=== PATIENT | female | born 1935 | race Two or more races ===

== ENCOUNTER 2021-04-18 13:26 | Inpatient (IN) | payer MEDICAID ==
[~2021-04-18] VITALS: Ht 147.3 cm; Wt 59.9 kg
[2021-04-18] MEDS ORDERED: lasix (13:36)
[2021-04-18] MEDS ORDERED: metoprolol (13:36)
[2021-04-18] MEDS ORDERED: verapamil (13:36)
[2021-04-18] MEDS ORDERED: metformin (13:36)
[2021-04-18] MEDS ORDERED: xarelto (13:36)
[2021-04-18] MEDS ORDERED: gabapentin (13:36)
[2021-04-18] MEDS ORDERED: ONDANSETRON HCL 4MG/2ML INJ IV ONE (14:00)
[2021-04-18] MEDS ORDERED: DILTIAZEM HCL 5MG/ML 5ML VIAL IV ONE ×2 (14:00→14:30)
[2021-04-18 14:05] LABS: BASOPHILS % 0.3 % (0.0-2.0); HEMOGLOBIN. 10.1 g/dL (12.0-16.0); LYMPHOCYTES % 12.4 % (20.0-50.0); MEAN CORPUSCULAR HEMOGLOBIN 27.4 pg (28.0-32.0); MONOCYTES % 5.3 % (2.0-8.0); PLATELET 252 x1000/uL (130-400); RED CELL DISTRIBUTION WIDTH 22.5 % (11.6-14.6)
[2021-04-18 14:10] LABS: CHLORIDE 99 mEq/L (98-107)
[2021-04-18 14:15] LABS: INR 1.8; PROTHROMBIN TIME 18.3 sec (9.6-11.0)
[2021-04-18 14:23] LABS: T4 FREE 1.28 ng/dL (0.76-1.46)
[2021-04-18] MEDS ORDERED: FAMOTIDINE 20MG/2ML VIAL IV ONE (14:30)
[2021-04-18] MEDS ORDERED: FUROSEMIDE 20MG/2ML VIAL IVP ONE (15:00)
[2021-04-18 15:36] LABS: PLATELET ESTIMATE NORMAL
[2021-04-18] MEDS ORDERED: METOCLOPRAMIDE HCL 10MG/2ML VIAL IV ONE (16:00)
[2021-04-18] MEDS ORDERED: DIPHENHYDRAMINE 50MG/ML VIAL IV PRN (16:00)
[2021-04-18] MEDS ORDERED: ACETAMINOPHEN 650MG SUPP PR PRN ×2 (16:00)
[2021-04-18] MEDS ORDERED: GUAIFENESIN 200MG/10ML SUGAR FREE UDC PO PRN (16:00)
[2021-04-18] MEDS ORDERED: ACETAMINOPHEN 325MG TABLET PO PRN ×2 (16:00)
[2021-04-18] MEDS ORDERED: ENOXAPARIN 40MG/0.4ML SYR SUBCUT SCH (16:00)
[2021-04-18] MEDS ORDERED: IPRATROPIUM/ALBUTEROL 0.5-3(2.5)MG/3ML NEB HHN PRN (16:00)
[2021-04-18] MEDS ORDERED: DOCUSATE SODIUM 100MG CAPSULE PO PRN (16:00)
[2021-04-18] MEDS ORDERED: CLONIDINE 0.1MG TABLET PO PRN (16:00)
[2021-04-18] MEDS ORDERED: MAGNESIUM/ALUMINUM HYDROXIDE/SIMETHICONE 30ML UDC PO PRN (16:00)
[2021-04-18] MEDS ORDERED: LEVOTHYROXINE SODIUM 100 MCG/ VIAL IV NR (17:30)
[2021-04-18 18:17] LABS: CLARITY URINE CLEAR (CLEAR); COLOR URINE YELLOW (YELLOW); KETONES URINE TRACE (NEGATIVE); LEUKOCYTE ESTERASE URINE NEGATIVE (NEGATIVE); NITRITE URINE NEGATIVE (NEGATIVE); OCCULT BLOOD URINE NEGATIVE (NEGATIVE); PROTEIN URINE TRACE (NEGATIVE); SPECIFIC GRAVITY URINE 1.014 (1.005-1.030)
[2021-04-18] MEDS: ONDANSETRON HCL 4MG/2ML INJ IV PRN (19:21)
[2021-04-18] MEDS ORDERED: DEXTROSE 50% WATER 50ML SYRINGE IV PRN ×2 (19:45)
[2021-04-18] MEDS ORDERED: BISACODYL 10MG SUPP PR NR (19:45)
[2021-04-18] MEDS: INSULIN LISPRO 100 UNITS/ML SUBCUT SCH (21:00)
[2021-04-18] MEDS: BLOOD SUGAR DIAGNOSTIC STRIP TEST SCH (21:00)
[2021-04-18] MEDS: DILTIAZEM HCL 60MG TABLET PO SCH (22:23)
[2021-04-18 22:40] VITALS: BP 97/74
[2021-04-18 22:50] VITALS: BP 127/92
[2021-04-19] VITALS (12 sets, daily range): BP systolic 97–128; BP diastolic 32–90
[2021-04-19] MEDS ORDERED: DILTIAZEM HCL 5MG/ML 5ML VIAL IV SCH (05:00)
[2021-04-19] MEDS: ONDANSETRON HCL 4MG/2ML INJ IV PRN ×2 (05:28→11:31)
[2021-04-19] MEDS: DILTIAZEM HCL 60MG TABLET PO SCH ×3 (05:43→21:00)
[2021-04-19 06:26] LABS: BASOPHILS % 0.5 % (0.0-2.0); HEMATOCRIT. 29.7 % (36.0-48.0); MEAN CORPUSCULAR HEMOGLOBIN 27.7 pg (28.0-32.0); MEAN CORPUSCULAR VOLUME 82.4 fL (81.0-99.0); MEAN PLATELET VOLUME 8.1 fl (7.4-10.4); MONOCYTES % 9.1 % (2.0-8.0); NEUTROPHILS % 71.4 % (40.0-76.0); PLATELET 230 x1000/uL (130-400); RED BLOOD CELL COUNT 3.61 mill/uL (4.2-5.4); RED CELL DISTRIBUTION WIDTH 22.5 % (11.6-14.6)
[2021-04-19] MEDS: LEVOTHYROXINE SODIUM 88MCG TABLET PO SCH (07:30)
[2021-04-19] MEDS: BLOOD SUGAR DIAGNOSTIC STRIP TEST SCH ×4 (07:48→20:38)
[2021-04-19] MEDS: INSULIN LISPRO 100 UNITS/ML SUBCUT SCH ×4 (08:00→20:38)
[2021-04-19 08:01] LABS: CHLORIDE 100 mEq/L (98-107)
[2021-04-19 08:13] LABS: LDL CHOLESTEROL 70 mg/dL (5-100)
[2021-04-19 08:14] LABS: CREATINE KINASE 56 IU/L (26-192)
[2021-04-19 08:15] LABS: HDL CHOLESTEROL 31 mg/dL (40-59)
[2021-04-19] MEDS ORDERED: DILTIAZEM HCL 5MG/ML 5ML VIAL IV NR (09:00)
[2021-04-19] MEDS: FUROSEMIDE 40MG/4ML VIAL IVP SCH (09:00)
[2021-04-19] MEDS: DILTIAZEM HCL 125 MG in DEXT 5% WATER 100 ML IV PRN (10:06)
[2021-04-19] MEDS: ENOXAPARIN 60MG/0.6ML SYR SUBCUT SCH (11:31)
[2021-04-19] MEDS: METOCLOPRAMIDE HCL 10MG/2ML VIAL IV PRN (15:46)
[2021-04-19 17:01] LABS: VITAMIN B12 SERUM 886 pg/mL (211-911)
[2021-04-19 17:26] LABS: FOLIC ACID (FOLATE) SERUM > 20.00 ng/mL (>5.38)
[2021-04-19] MEDS ORDERED: DIATR MEGLU/DIATRIZOATE SOLN 30ML PO NR (19:45)
[2021-04-20] VITALS (12 sets, daily range): BP systolic 98–122; BP diastolic 49–88
[2021-04-20] MEDS: DILTIAZEM HCL 60MG TABLET PO SCH ×3 (05:11→22:00)
[2021-04-20] MEDS: DILTIAZEM HCL 125 MG in DEXT 5% WATER 100 ML IV PRN (05:13)
[2021-04-20 06:27] LABS: BASOPHILS % 0.4 % (0.0-2.0); EOSINOPHILS % 0.7 % (0.0-5.0); HEMATOCRIT. 30.6 % (36.0-48.0); HEMOGLOBIN. 10.1 g/dL (12.0-16.0); LYMPHOCYTES % 18.2 % (20.0-50.0); MEAN CORPUSCULAR HEMOGLOBIN 27.2 pg (28.0-32.0); MEAN CORPUSCULAR VOLUME 82.2 fL (81.0-99.0); MONOCYTES % 11.3 % (2.0-8.0); NEUTROPHILS % 69.4 % (40.0-76.0); PLATELET 249 x1000/uL (130-400); RED BLOOD CELL COUNT 3.73 mill/uL (4.2-5.4); RED CELL DISTRIBUTION WIDTH 22.5 % (11.6-14.6)
[2021-04-20] MEDS: LEVOTHYROXINE SODIUM 88MCG TABLET PO SCH (08:24)
[2021-04-20] MEDS: FUROSEMIDE 40MG/4ML VIAL IVP SCH (08:24)
[2021-04-20] MEDS: BLOOD SUGAR DIAGNOSTIC STRIP TEST SCH ×4 (08:25→20:32)
[2021-04-20] MEDS: INSULIN LISPRO 100 UNITS/ML SUBCUT SCH ×4 (08:25→20:36)
[2021-04-20] MEDS: ENOXAPARIN 60MG/0.6ML SYR SUBCUT SCH (10:03)
[2021-04-20] MEDS: DIATR MEGLU/DIATRIZOATE SOLN 30ML PO SCH ×2 (10:03→11:12)
[2021-04-20] MEDS: METOCLOPRAMIDE HCL 10MG/2ML VIAL IV PRN (11:13)
[2021-04-20 14:49] LABS: FERRITIN 48 ng/mL (10-291)
[2021-04-20] MEDS ORDERED: DILTIAZEM HCL 5MG/ML 5ML VIAL IV PRN (16:00)
[2021-04-20] MEDS ORDERED: KCL 20MEQ/100ML PREMIX 100 ML IV NR (17:00)
[2021-04-21] VITALS (12 sets, daily range): BP systolic 99–130; BP diastolic 52–82
[2021-04-21 05:41] LABS: INR 1.3; PROTHROMBIN TIME 13.3 sec (9.6-11.0)
[2021-04-21] MEDS: DILTIAZEM HCL 60MG TABLET PO SCH ×3 (06:10→21:29)
[2021-04-21] MEDS: LEVOTHYROXINE SODIUM 88MCG TABLET PO SCH (06:13)
[2021-04-21 06:21] LABS: BASOPHILS % 0.4 % (0.0-2.0); EOSINOPHILS % 0.7 % (0.0-5.0); HEMATOCRIT. 29.7 % (36.0-48.0); HEMOGLOBIN. 9.8 g/dL (12.0-16.0); LYMPHOCYTES % 25.7 % (20.0-50.0); MEAN CORPUSCULAR HEMOGLOBIN 27.2 pg (28.0-32.0); MEAN CORPUSCULAR VOLUME 82.7 fL (81.0-99.0); MEAN PLATELET VOLUME 7.9 fl (7.4-10.4); NEUTROPHILS % 61.2 % (40.0-76.0); PLATELET 236 x1000/uL (130-400); RED BLOOD CELL COUNT 3.59 mill/uL (4.2-5.4); RED CELL DISTRIBUTION WIDTH 22.1 % (11.6-14.6)
[2021-04-21] MEDS: BLOOD SUGAR DIAGNOSTIC STRIP TEST SCH ×4 (07:28→20:26)
[2021-04-21] MEDS ORDERED: POTASSIUM CHLORIDE 20MEQ TABLET SR PO NR (08:00)
[2021-04-21] MEDS: INSULIN LISPRO 100 UNITS/ML SUBCUT SCH ×4 (08:17→21:00)
[2021-04-21] MEDS: FUROSEMIDE 40MG/4ML VIAL IVP SCH (08:17)
[2021-04-21] MEDS ORDERED: MAGNESIUM 2 G PREMIX 50 ML IV NR (09:00)
[2021-04-21] MEDS: ENOXAPARIN 60MG/0.6ML SYR SUBCUT SCH (11:22)
[2021-04-21] MEDS ORDERED: DIGOXIN 500MCG/2ML AMP IV NR (14:00)
[2021-04-21] MEDS: MAGNESIUM OXIDE 400MG TABLET PO SCH (14:21)
[2021-04-21] MEDS ORDERED: DIGOXIN 500MCG/2ML AMP IV PRN (16:30)
[2021-04-21] MEDS: DIGOXIN 500MCG/2ML AMP IV SCH (18:02)
[2021-04-21] MEDS: FERROUS SULFATE 325MG TABLET PO SCH (18:02)
[2021-04-22] VITALS (8 sets, daily range): BP systolic 108–126; BP diastolic 52–98
[2021-04-22] MEDS: LEVOTHYROXINE SODIUM 88MCG TABLET PO SCH (06:21)
[2021-04-22] MEDS: DILTIAZEM HCL 60MG TABLET PO SCH ×3 (06:22→18:43)
[2021-04-22 06:25] LABS: BASOPHILS % 0.4 % (0.0-2.0); EOSINOPHILS % 1.2 % (0.0-5.0); HEMATOCRIT. 32.8 % (36.0-48.0); HEMOGLOBIN. 10.9 g/dL (12.0-16.0); LYMPHOCYTES % 28.6 % (20.0-50.0); MEAN CORPUSCULAR HEMOGLOBIN 27.1 pg (28.0-32.0); MEAN CORPUSCULAR VOLUME 81.4 fL (81.0-99.0); MEAN PLATELET VOLUME 7.8 fl (7.4-10.4); MONOCYTES % 12.7 % (2.0-8.0); NEUTROPHILS % 57.1 % (40.0-76.0); PLATELET 259 x1000/uL (130-400); RED BLOOD CELL COUNT 4.03 mill/uL (4.2-5.4)
[2021-04-22] MEDS: BLOOD SUGAR DIAGNOSTIC STRIP TEST SCH ×4 (07:30→21:00)
[2021-04-22] MEDS: FUROSEMIDE 40MG/4ML VIAL IVP SCH (08:52)
[2021-04-22] MEDS: MAGNESIUM OXIDE 400MG TABLET PO SCH (08:52)
[2021-04-22] MEDS: FERROUS SULFATE 325MG TABLET PO SCH (08:52)
[2021-04-22] MEDS: INSULIN LISPRO 100 UNITS/ML SUBCUT SCH ×4 (08:53→22:09)
[2021-04-22] MEDS ORDERED: POTASSIUM CHLORIDE 20MEQ TABLET SR PO NR (09:00)
[2021-04-22] MEDS: ENOXAPARIN 60MG/0.6ML SYR SUBCUT SCH (12:04)
[2021-04-22 13:10] LABS: ATYPICAL P-ANCA <1:20 titer (Neg:<1:20); CYTOPLASMIC C-ANCA <1:20 titer (Neg:<1:20); PERINUCLEAR P-ANCA <1:20 titer (Neg:<1:20)
[2021-04-22] MEDS: METOPROLOL TARTRATE 5MG/5ML VIAL IV SCH ×2 (15:47→20:55)
[2021-04-22] MEDS: DIGOXIN 500MCG/2ML AMP IV SCH (18:43)
[2021-04-22] MEDS: PANTOPRAZOLE SODIUM 40 MG/VIAL IV SCH (18:43)
[2021-04-23] VITALS: BP 111/61
[2021-04-23] MEDS: DILTIAZEM HCL 60MG TABLET PO SCH ×2 (00:38→05:57)
[2021-04-23] MEDS: METOPROLOL TARTRATE 5MG/5ML VIAL IV SCH ×4 (02:12→21:10)
[2021-04-23 04:00] VITALS: BP 107/73
[2021-04-23] MEDS: PANTOPRAZOLE SODIUM 40 MG/VIAL IV SCH ×2 (05:55→17:51)
[2021-04-23] MEDS: LEVOTHYROXINE SODIUM 88MCG TABLET PO SCH (06:03)
[2021-04-23 06:51] LABS: CHLORIDE 95 mEq/L (98-107)
[2021-04-23 06:55] LABS: BASOPHILS % 0.3 % (0.0-2.0); EOSINOPHILS % 0.4 % (0.0-5.0); HEMATOCRIT. 36.9 % (36.0-48.0); HEMOGLOBIN. 12.2 g/dL (12.0-16.0); LYMPHOCYTES % 22.1 % (20.0-50.0); MEAN CORPUSCULAR HEMOGLOBIN 27.2 pg (28.0-32.0); MEAN PLATELET VOLUME 7.7 fl (7.4-10.4); MONOCYTES % 11.3 % (2.0-8.0); NEUTROPHILS % 65.9 % (40.0-76.0); PLATELET 283 x1000/uL (130-400); RED CELL DISTRIBUTION WIDTH 21.2 % (11.6-14.6)
[2021-04-23 07:10] LABS: INR 1.1; PROTHROMBIN TIME 12.1 sec (9.6-11.0)
[2021-04-23 08:00] VITALS: BP 95/69
[2021-04-23] MEDS: INSULIN LISPRO 100 UNITS/ML SUBCUT SCH ×4 (08:00→20:13)
[2021-04-23] MEDS: BLOOD SUGAR DIAGNOSTIC STRIP TEST SCH ×4 (08:01→20:14)
[2021-04-23] MEDS: FUROSEMIDE 40MG/4ML VIAL IVP SCH (08:23)
[2021-04-23] MEDS: MAGNESIUM OXIDE 400MG TABLET PO SCH (08:24)
[2021-04-23] MEDS: FERROUS SULFATE 325MG TABLET PO SCH (08:24)
[2021-04-23] MEDS ORDERED: LIDOCAINE HCL 1% 10 MG/ML 10ML VIAL ONE (09:36)
[2021-04-23] MEDS ORDERED: DEXAMETHASONE 4MG/ML 1ML VIAL ONE (09:36)
[2021-04-23] MEDS ORDERED: PROPOFOL 200MG/20ML VIAL IV ONE (09:36)
[2021-04-23] MEDS ORDERED: ONDANSETRON HCL 4MG/2ML INJ ONE (09:36)
[2021-04-23] MEDS ORDERED: SIMETHICONE 40 MG/0.6 ML 15ML ONE (09:43)
[2021-04-23] MEDS: ENOXAPARIN 60MG/0.6ML SYR SUBCUT SCH (11:00)
[2021-04-23 12:00] VITALS: BP 105/72
[2021-04-23] MEDS: SUCRALFATE 1G TABLET PO SCH ×3 (12:54→21:08)
[2021-04-23] MEDS: DILTIAZEM HCL 30MG TABLET PO SCH ×2 (12:54→17:52)
[2021-04-23 13:07] LABS: ANTI-MYELOPEROXIDASE AB < 9.0 U/mL (0.0-9.0); ANTI-PROTEINASE 3 ABS < 3.5 U/mL (0.0-3.5)
[2021-04-23 16:00] VITALS: BP 90/65
[2021-04-23] MEDS ORDERED: DIGOXIN 125MCG TABLET PO SCH (18:00)
[2021-04-23 20:00] VITALS: BP 87/54
[2021-04-24] VITALS: BP 114/63
[2021-04-24] MEDS: DILTIAZEM HCL 30MG TABLET PO SCH ×2 (01:15→05:10)
[2021-04-24 04:00] VITALS: BP 122/80
[2021-04-24] MEDS: PANTOPRAZOLE SODIUM 40 MG/VIAL IV SCH (05:06)
[2021-04-24] MEDS: METOPROLOL TARTRATE 5MG/5ML VIAL IV SCH (05:11)
[2021-04-24] MEDS: INSULIN LISPRO 100 UNITS/ML SUBCUT SCH (06:26)
[2021-04-24] MEDS: BLOOD SUGAR DIAGNOSTIC STRIP TEST SCH ×2 (06:27→12:19)
[2021-04-24 07:19] LABS: BASOPHILS % 0.2 % (0.0-2.0); HEMATOCRIT. 33.8 % (36.0-48.0); HEMOGLOBIN. 11.4 g/dL (12.0-16.0); LYMPHOCYTES % 14.1 % (20.0-50.0); MEAN CORPUSCULAR HEMOGLOBIN 27.4 pg (28.0-32.0); MEAN CORPUSCULAR VOLUME 81.6 fL (81.0-99.0); MEAN PLATELET VOLUME 7.6 fl (7.4-10.4); MONOCYTES % 5.4 % (2.0-8.0); NEUTROPHILS % 80.3 % (40.0-76.0); PLATELET 286 x1000/uL (130-400); RED BLOOD CELL COUNT 4.15 mill/uL (4.2-5.4); RED CELL DISTRIBUTION WIDTH 21.2 % (11.6-14.6)
[2021-04-24] MEDS: LEVOTHYROXINE SODIUM 88MCG TABLET PO SCH (07:48)
[2021-04-24] MEDS: SUCRALFATE 1G TABLET PO SCH ×2 (07:48→12:25)
[2021-04-24 08:00] VITALS: BP 121/59
[2021-04-24] MEDS: FUROSEMIDE 40MG/4ML VIAL IVP SCH (08:40)
[2021-04-24] MEDS: FERROUS SULFATE 325MG TABLET PO SCH (08:40)
[2021-04-24] MEDS: MAGNESIUM OXIDE 400MG TABLET PO SCH (08:40)
[2021-04-24] MEDS: ENOXAPARIN 60MG/0.6ML SYR SUBCUT SCH (11:06)
[2021-04-24 12:00] VITALS: BP 112/59
[2021-04-24] MEDS ORDERED: METOPROLOL TARTRATE 25MG TABLET PO SCH (12:00)
[2021-04-24] MEDS ORDERED: SUCR1TAB30 PO (12:03)
[2021-04-24] MEDS ORDERED: FERR-63 PO (12:03)
[2021-04-24] MEDS ORDERED: INSU100I28 SQ (12:03)
[2021-04-24] MEDS ORDERED: MAGN400T8 MT (12:03)
[2021-04-24] MEDS ORDERED: METF-414 MT (12:03)
[2021-04-24] MEDS ORDERED: FURO40TA5 MT (12:03)
[2021-04-24] MEDS ORDERED: RIVA20TA MT (12:03)
[2021-04-24] MEDS ORDERED: LEVO88TA7 PO (12:03)
[2021-04-24] MEDS ORDERED: CARLA MT (12:03)
[2021-04-24] MEDS ORDERED: METO25TA6 PO (12:03)
[2021-04-24] MEDS ORDERED: PANT40TA51 MT (12:03)
[2021-04-24] MEDS ORDERED: DIGO-26 PO (12:03)
[2021-04-24] MEDS ORDERED: INSULIN LISPRO 100 UNITS/ML SUBCUT SCH (13:00)
[2021-04-24] MEDS ORDERED: INSULIN GLARGINE UD 100 UNITS/ML SYR SUBCUT SCH (13:30)
[2021-04-24] MEDS ORDERED: DILTIAZEM HCL 60MG TABLET PO SCH (14:00)
[2021-04-27 19:06] LABS: OVA & PARASITE EXAM Final report (.)
== END 2021-04-24 14:57 | disposition home or self-care (01) | DRG 201 ==
LOC: ER 13:46 → 5EST 14:38 → EDBEDREQSVC 15:43 → EDBEDREQ 15:43 → EDBEDREQTM 15:43 → ENRESERV 19:51
PROVIDERS: ADMIT Internal Medicine; ATTEND Internal Medicine
PROC: 0DB68ZX Excision of Stomach, Via Natural or Artificial Opening Endoscopic, Diagnostic (ICD-10-PCS; principal; 2021-04-24)
DX: I48.91 Unspecified atrial fibrillation (principal); N17.0 Acute kidney failure with tubular necrosis; J69.0 Pneumonitis due to inhalation of food and vomit; E43 Unspecified severe protein-calorie malnutrition; I31.3 Pericardial effusion (noninflammatory); K50.012 Crohn's disease of small intestine with intestinal obstruction; E11.22 Type 2 diabetes mellitus with diabetic chronic kidney disease; I50.9 Heart failure, unspecified; I13.0 Hypertensive heart and chronic kidney disease with heart failure and stage 1 through stage 4 chronic kidney disease, or unspecified chronic kidney disease; C90.00 Multiple myeloma not having achieved remission; E87.1 Hypo-osmolality and hyponatremia; Z20.822 Contact with and (suspected) exposure to COVID-19; K25.9 Gastric ulcer, unspecified as acute or chronic, without hemorrhage or perforation; E86.9 Volume depletion, unspecified; D50.9 Iron deficiency anemia, unspecified; R74.01 Elevation of levels of liver transaminase levels; K52.9 Noninfective gastroenteritis and colitis, unspecified; E03.9 Hypothyroidism, unspecified; I34.0 Nonrheumatic mitral (valve) insufficiency; I25.10 Atherosclerotic heart disease of native coronary artery without angina pectoris; K44.9 Diaphragmatic hernia without obstruction or gangrene; N18.9 Chronic kidney disease, unspecified; N28.1 Cyst of kidney, acquired; N81.10 Cystocele, unspecified; K21.9 Gastro-esophageal reflux disease without esophagitis; E87.6 Hypokalemia; E83.42 Hypomagnesemia; Z79.01 Long term (current) use of anticoagulants; Z82.49 Family history of ischemic heart disease and other diseases of the circulatory system; Z95.0 Presence of cardiac pacemaker
CPT/HCPCS: 36415; 71045; 74018; 74176; 76700; 78580; 80048; 80053; 80061; 80076; 81003; 82248; 82378; 82550; 82607; 82728; 82746; 82962; 83036; 83520; 83540; 83550; 83735; 83880; 84145; 84439; 84443; 84481; 84484; 85025; 85044; 85379; 86256; 86301; 86304; 87045; 87177; 87209; 87426; 87449; 87493; 88305; 89055; 93005; 93306; 99291; C9113; J1100; J1160; J1650; J1815; J1940; J2405; J2704; J2765; J3475; J3480; J3490; J7060; Q9963

== ENCOUNTER 2021-04-29 10:54 | Emergency (ER) | payer MEDICAID ==
[~2021-04-29] VITALS: Ht 154.9 cm; Wt 61.0 kg
[~2021-04-29 10:54] MED LIST: CARLA MT; DIGO-26 PO; FERR-63 PO; FURO40TA5 MT; INSU100I28 SQ; LEVO88TA7 PO; MAGN400T8 MT; METF-414 MT; METO25TA6 PO; PANT40TA51 MT; RIVA20TA MT; SUCR1TAB30 PO; gabapentin
[2021-04-29] MEDS ORDERED: ONDANSETRON HCL 4MG/2ML INJ IV STA (12:12)
[2021-04-29] MEDS ORDERED: FAMOTIDINE 20MG/2ML VIAL IV STA (12:12)
[2021-04-29] MEDS ORDERED: KETOROLAC 30MG/ML VIAL IV STA (12:12)
[2021-04-29 12:15] LABS: CHLORIDE 91 mEq/L (98-107)
[2021-04-29] MEDS ORDERED: SODIUM CHLORIDE 0.9% 1,000 ML IV ONE (12:15)
[2021-04-29 12:21] LABS: ETHANOL BLOOD < 10 mg/dL
[2021-04-29 12:22] LABS: BASOPHILS % 1.4 % (0.0-2.0); EOSINOPHILS % 0.5 % (0.0-5.0); HEMATOCRIT. 44.5 % (36.0-48.0); HEMOGLOBIN. 14.2 g/dL (12.0-16.0); LYMPHOCYTES % 24.8 % (20.0-50.0); MEAN CORPUSCULAR HEMOGLOBIN 26.7 pg (28.0-32.0); MEAN CORPUSCULAR VOLUME 83.4 fL (81.0-99.0); MEAN PLATELET VOLUME 7.6 fl (7.4-10.4); MONOCYTES % 5.5 % (2.0-8.0); NEUTROPHILS % 67.8 % (40.0-76.0); PLATELET 305 x1000/uL (130-400); RED BLOOD CELL COUNT 5.33 mill/uL (4.2-5.4); RED CELL DISTRIBUTION WIDTH 21.6 % (11.6-14.6)
[2021-04-29 14:04] LABS: CLARITY URINE CLEAR (CLEAR); COLOR URINE YELLOW (YELLOW); KETONES URINE NEGATIVE (NEGATIVE); LEUKOCYTE ESTERASE URINE NEGATIVE (NEGATIVE); NITRITE URINE NEGATIVE (NEGATIVE); OCCULT BLOOD URINE NEGATIVE (NEGATIVE); PH URINE 6.5 (4.5-8.0); PROTEIN URINE NEGATIVE (NEGATIVE); SPECIFIC GRAVITY URINE 1.011 (1.005-1.030); UROBILINOGEN URINE 0.2 E.U./dL (0.2-1.0)
[2021-04-29 14:16] LABS: *AMPHETAMINES SCREEN URINE NEGATIVE (NEGATIVE); *BARBITURATES SCREEN URINE NEGATIVE (NEGATIVE)
[2021-04-29 14:17] LABS: *BENZODIAZEPINES SCREEN URINE NEGATIVE (NEGATIVE); *COCAINE SCREEN URINE NEGATIVE (NEGATIVE); CANNABINOID URINE SCREEN NEGATIVE (NEGATIVE); METHADONE URINE SCREEN NEGATIVE (NEGATIVE); OPIATES URINE SCREEN NEGATIVE (NEGATIVE); PHENCYCLIDINE URINE SCREEN NEGATIVE (NEGATIVE)
[2021-04-29] MEDS ORDERED: FAMO-135 MT (15:39)
[2021-04-29] MEDS ORDERED: MAG-55 MT (15:39)
[2021-04-29] MEDS ORDERED: ONDA4TAB5 MT (15:39)
[2021-04-29 15:45] VITALS: BP 128/78
== END 2021-04-29 15:58 | disposition home or self-care (01) ==
LOC: ER 10:54
DX: K29.00 Acute gastritis without bleeding (principal); E11.43 Type 2 diabetes mellitus with diabetic autonomic (poly)neuropathy; K31.84 Gastroparesis; I11.9 Hypertensive heart disease without heart failure; I48.91 Unspecified atrial fibrillation; Z79.01 Long term (current) use of anticoagulants; I25.10 Atherosclerotic heart disease of native coronary artery without angina pectoris; Z95.0 Presence of cardiac pacemaker; Z79.84 Long term (current) use of oral hypoglycemic drugs
CPT/HCPCS: 36415; 74176; 80053; 80305; 80320; 81003; 83690; 85025; 93005; 96361; 96374; 96375; 99285; J1885; J2405; J3490; J7030; G0480

== ENCOUNTER 2021-05-29 16:40 | Inpatient (IN) | payer MEDICAID ==
[~2021-05-29] VITALS: Ht 154.9 cm; Wt 54.2 kg
[~2021-05-29 16:40] MED LIST changes: +FAMO-135 MT; +MAG-55 MT; +ONDA4TAB5 MT
[2021-05-29] MEDS ORDERED: SODIUM CHLORIDE 0.9% 1,000 ML IV ONE (18:15)
[2021-05-29 18:43] LABS: BASOPHILS % 0.9 % (0.0-2.0); EOSINOPHILS % 0.5 % (0.0-5.0); HEMATOCRIT. 37.2 % (36.0-48.0); HEMOGLOBIN. 12.6 g/dL (12.0-16.0); MEAN CORPUSCULAR HEMOGLOBIN 29.3 pg (28.0-32.0); MEAN CORPUSCULAR VOLUME 86.2 fL (81.0-99.0); MEAN PLATELET VOLUME 7.9 fl (7.4-10.4); MONOCYTES % 7.7 % (2.0-8.0); NEUTROPHILS % 63.9 % (40.0-76.0); PLATELET 253 x1000/uL (130-400); RED BLOOD CELL COUNT 4.32 mill/uL (4.2-5.4); RED CELL DISTRIBUTION WIDTH 21.1 % (11.6-14.6)
[2021-05-29 18:44] LABS: CHLORIDE 104 mEq/L (98-107)
[2021-05-29 19:03] LABS: CLARITY URINE CLOUDY (CLEAR); COLOR URINE YELLOW (YELLOW); KETONES URINE NEGATIVE (NEGATIVE); LEUKOCYTE ESTERASE URINE 3+ (NEGATIVE); NITRITE URINE NEGATIVE (NEGATIVE); OCCULT BLOOD URINE 1+ (NEGATIVE); PROTEIN URINE TRACE (NEGATIVE); UROBILINOGEN URINE 0.2 E.U./dL (0.2-1.0)
[2021-05-30 01:30] VITALS: BP 108/66
[2021-05-30] MEDS ORDERED: *PATIENT'S OWN MEDICATION STORAGE XX SCH (03:00)
[2021-05-30 04:00] VITALS: BP 96/59
[2021-05-30 06:43] VITALS: BP 102/62
[2021-05-30] MEDS ORDERED: DEXTROSE 50% WATER 50ML SYRINGE IV PRN (07:30)
[2021-05-30] MEDS: SODIUM CHLORIDE 0.9% 1,000 ML IV SCH ×2 (08:12→20:21)
[2021-05-30] MEDS ORDERED: CEFTRIAXONE 1 G PREMIX 50 ML IV SCH (09:15)
[2021-05-30] MEDS ORDERED: DILTIAZEM HCL 180MG CAPSULE CD 24HR PO NR (10:45)
[2021-05-30] MEDS: PANTOPRAZOLE 40MG DR TABLET PO SCH (11:35)
[2021-05-30] MEDS: SUCRALFATE 1G TABLET PO SCH ×3 (11:35→20:17)
[2021-05-30] MEDS: CEFTRIAXONE 1,000 MG in DEXTROSE 5% WATER 50 ML IV SCH (11:35)
[2021-05-30] MEDS: DILTIAZEM HCL 180MG CAPSULE CD 24HR PO SCH (11:36)
[2021-05-30] MEDS: BLOOD SUGAR DIAGNOSTIC STRIP TEST SCH ×3 (11:36→20:19)
[2021-05-30 12:00] VITALS: BP 125/76
[2021-05-30 12:19] LABS: BASOPHILS % 0.6 % (0.0-2.0); HEMATOCRIT. 33.6 % (36.0-48.0); HEMOGLOBIN. 11.1 g/dL (12.0-16.0); LYMPHOCYTES % 24.3 % (20.0-50.0); MEAN CORPUSCULAR HEMOGLOBIN 28.9 pg (28.0-32.0); MEAN CORPUSCULAR VOLUME 87.2 fL (81.0-99.0); MEAN PLATELET VOLUME 7.4 fl (7.4-10.4); MONOCYTES % 8.1 % (2.0-8.0); PLATELET 237 x1000/uL (130-400); RED BLOOD CELL COUNT 3.86 mill/uL (4.2-5.4); RED CELL DISTRIBUTION WIDTH 21.5 % (11.6-14.6)
[2021-05-30] MEDS: INSULIN LISPRO 100 UNITS/ML SUBCUT SCH ×3 (12:35→20:18)
[2021-05-30] MEDS ORDERED: INSULIN GLARGINE 100 UNITS/ML SUBCUT NR (13:00)
[2021-05-30] MEDS ORDERED: MAGNESIUM 4 G PREMIX 100 ML IV SCH ×2 (13:00→15:30)
[2021-05-30 16:00] VITALS: BP 130/80
[2021-05-30] MEDS ORDERED: METFORMIN HCL 500MG TABLET PO SCH (17:00)
[2021-05-30] MEDS ORDERED: FAMOTIDINE(NEO) 1MG/ML SUSP PO SCH (17:00)
[2021-05-30] MEDS: KCL 20MEQ/100ML PREMIX 100 ML IV SCH ×2 (17:24→20:17)
[2021-05-30] MEDS: DIGOXIN 125MCG TABLET PO SCH (17:55)
[2021-05-30 20:00] VITALS: BP 98/57
[2021-05-30] MEDS: METOPROLOL TARTRATE 25MG TABLET PO SCH (20:18)
[2021-05-31] VITALS: BP 102/57
[2021-05-31 04:00] VITALS: BP 109/67
[2021-05-31] MEDS: BLOOD SUGAR DIAGNOSTIC STRIP TEST SCH ×4 (05:43→20:28)
[2021-05-31] MEDS: INSULIN LISPRO 100 UNITS/ML SUBCUT SCH ×4 (05:43→21:19)
[2021-05-31] MEDS: SUCRALFATE 1G TABLET PO SCH ×3 (05:43→17:50)
[2021-05-31] MEDS: LEVOTHYROXINE SODIUM 88MCG TABLET PO SCH (05:43)
[2021-05-31] MEDS: PANTOPRAZOLE 40MG DR TABLET PO SCH (05:43)
[2021-05-31 07:25] LABS: BASOPHILS % 0.6 % (0.0-2.0); EOSINOPHILS % 1.1 % (0.0-5.0); HEMATOCRIT. 34.2 % (36.0-48.0); HEMOGLOBIN. 11.6 g/dL (12.0-16.0); MEAN CORPUSCULAR HEMOGLOBIN 29.4 pg (28.0-32.0); MEAN CORPUSCULAR VOLUME 86.6 fL (81.0-99.0); MEAN PLATELET VOLUME 7.7 fl (7.4-10.4); MONOCYTES % 10.8 % (2.0-8.0); NEUTROPHILS % 60.5 % (40.0-76.0); PLATELET 252 x1000/uL (130-400); RED BLOOD CELL COUNT 3.95 mill/uL (4.2-5.4); RED CELL DISTRIBUTION WIDTH 21.1 % (11.6-14.6)
[2021-05-31 08:00] VITALS: BP 113/65
[2021-05-31] MEDS: METOPROLOL TARTRATE 25MG TABLET PO SCH ×2 (09:00→20:58)
[2021-05-31] MEDS: FUROSEMIDE 40MG TABLET PO SCH (09:08)
[2021-05-31] MEDS: DILTIAZEM HCL 180MG CAPSULE CD 24HR PO SCH (09:09)
[2021-05-31] MEDS: INSULIN GLARGINE 100 UNITS/ML SUBCUT SCH (09:10)
[2021-05-31] MEDS ORDERED: POTASSIUM CHLORIDE 20MEQ TABLET SR PO NR (10:00)
[2021-05-31] MEDS: CEFTRIAXONE 1,000 MG in DEXTROSE 5% WATER 50 ML IV SCH (10:58)
[2021-05-31 12:00] VITALS: BP 105/62
[2021-05-31 16:00] VITALS: BP 115/73
[2021-05-31] MEDS: SODIUM CHLORIDE 0.9% 1,000 ML IV SCH (17:50)
[2021-05-31] MEDS: DIGOXIN 125MCG TABLET PO SCH (17:51)
[2021-05-31 20:00] VITALS: BP 111/68
[2021-05-31] MEDS: SUCRALFATE 1 G/10 ML UDC PO SCH (21:18)
[2021-05-31] MEDS ORDERED: IOHEXOL-300 100 ML BOTTLE ONE (21:34)
[2021-06-01] VITALS: BP 98/56
[2021-06-01 04:00] VITALS: BP 102/58
[2021-06-01] MEDS: PANTOPRAZOLE 40MG DR TABLET PO SCH (05:54)
[2021-06-01] MEDS: INSULIN LISPRO 100 UNITS/ML SUBCUT SCH ×4 (05:54→21:30)
[2021-06-01] MEDS: LEVOTHYROXINE SODIUM 88MCG TABLET PO SCH (05:54)
[2021-06-01] MEDS: BLOOD SUGAR DIAGNOSTIC STRIP TEST SCH ×4 (05:54→21:30)
[2021-06-01] MEDS: SUCRALFATE 1 G/10 ML UDC PO SCH ×4 (05:54→21:27)
[2021-06-01 07:23] LABS: BASOPHILS % 0.7 % (0.0-2.0); HEMOGLOBIN. 12.4 g/dL (12.0-16.0); MEAN CORPUSCULAR HEMOGLOBIN 29.2 pg (28.0-32.0); MEAN CORPUSCULAR VOLUME 84.9 fL (81.0-99.0); MEAN PLATELET VOLUME 7.7 fl (7.4-10.4); MONOCYTES % 10.4 % (2.0-8.0); NEUTROPHILS % 53.9 % (40.0-76.0); PLATELET 273 x1000/uL (130-400); RED BLOOD CELL COUNT 4.24 mill/uL (4.2-5.4); RED CELL DISTRIBUTION WIDTH 21.4 % (11.6-14.6)
[2021-06-01 08:00] VITALS: BP 123/56
[2021-06-01] MEDS ORDERED: POTASSIUM CHLORIDE 20MEQ TABLET SR PO NR ×2 (08:59→16:15)
[2021-06-01] MEDS: METOPROLOL TARTRATE 25MG TABLET PO SCH ×2 (09:00→21:28)
[2021-06-01] MEDS: FUROSEMIDE 40MG TABLET PO SCH (09:00)
[2021-06-01] MEDS: DILTIAZEM HCL 180MG CAPSULE CD 24HR PO SCH (09:00)
[2021-06-01] MEDS: INSULIN GLARGINE 100 UNITS/ML SUBCUT SCH (09:11)
[2021-06-01] MEDS: CEFTRIAXONE 1,000 MG in DEXTROSE 5% WATER 50 ML IV SCH (11:29)
[2021-06-01 11:52] VITALS: BP 100/65
[2021-06-01 13:36] LABS: HEMATOCRIT 35.2 % (36.0-48.0); HEMOGLOBIN 11.9 g/dL (12.0-16.0)
[2021-06-01 13:46] LABS: INR 1.1; PROTHROMBIN TIME 11.7 sec (9.6-11.0)
[2021-06-01] MEDS ORDERED: FUROSEMIDE 40MG/4ML VIAL IVP NR (14:30)
[2021-06-01] MEDS ORDERED: MAGNESIUM 2 G PREMIX 50 ML IV NR (15:00)
[2021-06-01 16:00] VITALS: BP 110/61
[2021-06-01] MEDS: DIGOXIN 125MCG TABLET PO SCH (16:59)
[2021-06-01 20:00] VITALS: BP 118/74
[2021-06-01 21:53] LABS: HEMATOCRIT 34.8 % (36.0-48.0); HEMOGLOBIN 11.8 g/dL (12.0-16.0)
[2021-06-02] VITALS: BP 122/88
[2021-06-02 04:00] VITALS: BP 101/61
[2021-06-02 05:24] LABS: BASOPHILS % 0.7 % (0.0-2.0); EOSINOPHILS % 1.7 % (0.0-5.0); HEMATOCRIT. 34.8 % (36.0-48.0); HEMOGLOBIN. 12.1 g/dL (12.0-16.0); LYMPHOCYTES % 38.6 % (20.0-50.0); MEAN CORPUSCULAR HEMOGLOBIN 29.9 pg (28.0-32.0); MEAN CORPUSCULAR VOLUME 85.9 fL (81.0-99.0); MEAN PLATELET VOLUME 7.5 fl (7.4-10.4); MONOCYTES % 11.1 % (2.0-8.0); NEUTROPHILS % 47.9 % (40.0-76.0); PLATELET 271 x1000/uL (130-400); RED BLOOD CELL COUNT 4.05 mill/uL (4.2-5.4); RED CELL DISTRIBUTION WIDTH 21.5 % (11.6-14.6)
[2021-06-02 05:30] LABS: PHOSPHORUS 2.1 mg/dL (2.5-4.9)
[2021-06-02 05:37] LABS: INR 1.1; PROTHROMBIN TIME 11.5 sec (9.6-11.0)
[2021-06-02] MEDS: SUCRALFATE 1 G/10 ML UDC PO SCH ×4 (06:21→20:40)
[2021-06-02] MEDS: PANTOPRAZOLE 40MG DR TABLET PO SCH (06:21)
[2021-06-02] MEDS: LEVOTHYROXINE SODIUM 88MCG TABLET PO SCH (06:22)
[2021-06-02] MEDS: BLOOD SUGAR DIAGNOSTIC STRIP TEST SCH ×4 (06:22→20:43)
[2021-06-02] MEDS: INSULIN LISPRO 100 UNITS/ML SUBCUT SCH ×4 (06:22→20:46)
[2021-06-02 08:00] VITALS: BP 114/64
[2021-06-02] MEDS: METOPROLOL TARTRATE 25MG TABLET PO SCH ×2 (09:00→20:40)
[2021-06-02] MEDS: FUROSEMIDE 40MG TABLET PO SCH (09:00)
[2021-06-02] MEDS: DILTIAZEM HCL 180MG CAPSULE CD 24HR PO SCH (09:00)
[2021-06-02] MEDS: INSULIN GLARGINE 100 UNITS/ML SUBCUT SCH (09:59)
[2021-06-02 10:15] LABS: HEMATOCRIT 35.2 % (36.0-48.0); HEMOGLOBIN 11.9 g/dL (12.0-16.0)
[2021-06-02] MEDS: CEFTRIAXONE 1,000 MG in DEXTROSE 5% WATER 50 ML IV SCH (10:18)
[2021-06-02] MEDS ORDERED: POTASSIUM PHOS,M-BASIC-D-BASIC 20 MMOL in DEXT 5% WATER 243.3333 ML IV NR (11:00)
[2021-06-02] MEDS ORDERED: MAGNESIUM 2 G PREMIX 50 ML IV NR ×2 (11:00→13:00)
[2021-06-02] MEDS ORDERED: PROPOFOL 200MG/20ML VIAL IV ONE (11:20)
[2021-06-02] MEDS ORDERED: ONDANSETRON HCL 4MG/2ML INJ ONE (11:26)
[2021-06-02] MEDS ORDERED: DEXAMETHASONE 4MG/ML 1ML VIAL ONE (11:26)
[2021-06-02] MEDS ORDERED: LIDOCAINE HCL 1% 10 MG/ML 10ML VIAL ONE (11:26)
[2021-06-02] MEDS ORDERED: MIDAZOLAM HCL 2 MG/2 ML VIAL ONE (11:37)
[2021-06-02] MEDS ORDERED: PHENYLEPHRINE HCL 10 MG/ML 1ML (IV VIAL) IV ONE (11:55)
[2021-06-02 16:00] VITALS: BP 118/87
[2021-06-02 17:07] LABS: HEMATOCRIT 37.5 % (36.0-48.0); HEMOGLOBIN 12.3 g/dL (12.0-16.0)
[2021-06-02] MEDS: DIGOXIN 125MCG TABLET PO SCH (17:16)
[2021-06-02 20:00] VITALS: BP 118/84
[2021-06-03] VITALS: BP 111/70
[2021-06-03 04:00] VITALS: BP 121/81
[2021-06-03] MEDS: SUCRALFATE 1 G/10 ML UDC PO SCH ×4 (05:23→21:48)
[2021-06-03] MEDS: LEVOTHYROXINE SODIUM 88MCG TABLET PO SCH (05:23)
[2021-06-03] MEDS: PANTOPRAZOLE 40MG DR TABLET PO SCH (05:23)
[2021-06-03] MEDS: BLOOD SUGAR DIAGNOSTIC STRIP TEST SCH ×4 (05:23→20:38)
[2021-06-03] MEDS: INSULIN LISPRO 100 UNITS/ML SUBCUT SCH ×4 (05:37→20:38)
[2021-06-03 07:31] LABS: BASOPHILS % 0.3 % (0.0-2.0); HEMATOCRIT. 34.8 % (36.0-48.0); HEMOGLOBIN. 11.8 g/dL (12.0-16.0); LYMPHOCYTES % 22.2 % (20.0-50.0); MEAN CORPUSCULAR HEMOGLOBIN 29.4 pg (28.0-32.0); MEAN CORPUSCULAR VOLUME 86.6 fL (81.0-99.0); MEAN PLATELET VOLUME 7.7 fl (7.4-10.4); MONOCYTES % 3.1 % (2.0-8.0); NEUTROPHILS % 74.4 % (40.0-76.0); PLATELET 282 x1000/uL (130-400); RED BLOOD CELL COUNT 4.02 mill/uL (4.2-5.4); RED CELL DISTRIBUTION WIDTH 20.9 % (11.6-14.6)
[2021-06-03 08:34] VITALS: BP 127/74
[2021-06-03] MEDS: METOPROLOL TARTRATE 25MG TABLET PO SCH ×2 (08:38→20:37)
[2021-06-03] MEDS: DILTIAZEM HCL 180MG CAPSULE CD 24HR PO SCH (08:38)
[2021-06-03] MEDS: FUROSEMIDE 40MG TABLET PO SCH (08:38)
[2021-06-03] MEDS ORDERED: MAGNESIUM 2 G PREMIX 50 ML IV SCH (10:00)
[2021-06-03] MEDS: CEFTRIAXONE 1,000 MG in DEXTROSE 5% WATER 50 ML IV SCH (11:40)
[2021-06-03] MEDS: INSULIN GLARGINE 100 UNITS/ML SUBCUT SCH (11:42)
[2021-06-03 12:00] VITALS: BP 111/78
[2021-06-03 16:00] VITALS: BP 129/66
[2021-06-03] MEDS ORDERED: RIVAROXABAN 10 MG TABLET PO SCH (17:00)
[2021-06-03] MEDS: DIGOXIN 125MCG TABLET PO SCH (19:11)
[2021-06-03 20:00] VITALS: BP 121/73
[2021-06-04] VITALS (7 sets, daily range): BP systolic 89–128; BP diastolic 54–77
[2021-06-04] MEDS: BLOOD SUGAR DIAGNOSTIC STRIP TEST SCH ×4 (06:21→21:11)
[2021-06-04] MEDS: PANTOPRAZOLE 40MG DR TABLET PO SCH (06:21)
[2021-06-04] MEDS: LEVOTHYROXINE SODIUM 88MCG TABLET PO SCH (06:21)
[2021-06-04] MEDS: SUCRALFATE 1 G/10 ML UDC PO SCH ×4 (06:21→21:10)
[2021-06-04] MEDS: INSULIN LISPRO 100 UNITS/ML SUBCUT SCH ×4 (06:22→21:00)
[2021-06-04 07:30] LABS: BASOPHILS % 0.4 % (0.0-2.0); EOSINOPHILS % 0.5 % (0.0-5.0); HEMATOCRIT. 35.9 % (36.0-48.0); HEMOGLOBIN. 12.2 g/dL (12.0-16.0); LYMPHOCYTES % 31.2 % (20.0-50.0); MEAN CORPUSCULAR HEMOGLOBIN 29.3 pg (28.0-32.0); MEAN CORPUSCULAR VOLUME 85.9 fL (81.0-99.0); MEAN PLATELET VOLUME 7.6 fl (7.4-10.4); MONOCYTES % 6.8 % (2.0-8.0); NEUTROPHILS % 61.1 % (40.0-76.0); PLATELET 276 x1000/uL (130-400); RED BLOOD CELL COUNT 4.18 mill/uL (4.2-5.4); RED CELL DISTRIBUTION WIDTH 21.5 % (11.6-14.6)
[2021-06-04 08:00] LABS: PHOSPHORUS 3.3 mg/dL (2.5-4.9)
[2021-06-04] MEDS ORDERED: POTASSIUM CHLORIDE 20MEQ TABLET SR PO SCH (08:00)
[2021-06-04] MEDS: METOPROLOL TARTRATE 25MG TABLET PO SCH ×2 (09:00→21:00)
[2021-06-04] MEDS: DILTIAZEM HCL 180MG CAPSULE CD 24HR PO SCH (09:00)
[2021-06-04] MEDS: FUROSEMIDE 40MG TABLET PO SCH (10:11)
[2021-06-04] MEDS: INSULIN GLARGINE 100 UNITS/ML SUBCUT SCH (10:35)
[2021-06-04] MEDS: RIVAROXABAN 20 MG TABLET PO SCH (17:44)
[2021-06-04] MEDS: DIGOXIN 125MCG TABLET PO SCH (17:44)
[2021-06-04] MEDS ORDERED: PANTOPRAZOLE SODIUM 40 MG/VIAL IV NR (23:00)
[2021-06-04] MEDS ORDERED: METOCLOPRAMIDE HCL 10MG/2ML VIAL IV NR (23:00)
[2021-06-05] VITALS: BP 102/84
[2021-06-05 04:00] VITALS: BP 96/72
[2021-06-05] MEDS: BLOOD SUGAR DIAGNOSTIC STRIP TEST SCH ×4 (05:54→20:45)
[2021-06-05] MEDS: LEVOTHYROXINE SODIUM 88MCG TABLET PO SCH (05:54)
[2021-06-05] MEDS: INSULIN LISPRO 100 UNITS/ML SUBCUT SCH ×4 (05:54→21:41)
[2021-06-05] MEDS: PANTOPRAZOLE 40MG DR TABLET PO SCH (05:54)
[2021-06-05] MEDS: SUCRALFATE 1 G/10 ML UDC PO SCH ×4 (05:54→22:02)
[2021-06-05 06:30] LABS: HEMATOCRIT. 37.1 % (36.0-48.0); HEMOGLOBIN. 12.5 g/dL (12.0-16.0); MEAN CORPUSCULAR HEMOGLOBIN 29.3 pg (28.0-32.0); MEAN CORPUSCULAR VOLUME 86.7 fL (81.0-99.0); MEAN PLATELET VOLUME 7.6 fl (7.4-10.4); PLATELET 284 x1000/uL (130-400); RED BLOOD CELL COUNT 4.28 mill/uL (4.2-5.4); RED CELL DISTRIBUTION WIDTH 21.4 % (11.6-14.6)
[2021-06-05 06:48] LABS: PHOSPHORUS 3.5 mg/dL (2.5-4.9)
[2021-06-05 08:00] VITALS: BP 98/55
[2021-06-05] MEDS ORDERED: MAGNESIUM GLUCONATE 500MG TABLET PO NR (08:00)
[2021-06-05] MEDS ORDERED: POTASSIUM CHLORIDE 20MEQ TABLET SR PO NR (08:00)
[2021-06-05] MEDS: DILTIAZEM HCL 180MG CAPSULE CD 24HR PO SCH (08:02)
[2021-06-05] MEDS: METOPROLOL TARTRATE 25MG TABLET PO SCH ×2 (08:03→21:40)
[2021-06-05] MEDS: FUROSEMIDE 40MG TABLET PO SCH (08:55)
[2021-06-05] MEDS: INSULIN GLARGINE 100 UNITS/ML SUBCUT SCH (09:29)
[2021-06-05] MEDS: SODIUM CHLORIDE 0.45% 1,000 ML IV SCH ×2 (11:26→22:03)
[2021-06-05 12:00] VITALS: BP 112/79
[2021-06-05 12:27] LABS: PLATELET ESTIMATE NORMAL
[2021-06-05 16:00] VITALS: BP 106/68
[2021-06-05] MEDS: RIVAROXABAN 20 MG TABLET PO SCH (17:20)
[2021-06-05] MEDS: DIGOXIN 125MCG TABLET PO SCH (17:20)
[2021-06-05 20:00] VITALS: BP 130/86
[2021-06-06] VITALS: BP 94/56
[2021-06-06 04:00] VITALS: BP 100/63
[2021-06-06] MEDS: BLOOD SUGAR DIAGNOSTIC STRIP TEST SCH ×2 (05:44→12:31)
[2021-06-06] MEDS: INSULIN LISPRO 100 UNITS/ML SUBCUT SCH ×2 (05:44→12:51)
[2021-06-06] MEDS: LEVOTHYROXINE SODIUM 88MCG TABLET PO SCH (05:47)
[2021-06-06] MEDS: PANTOPRAZOLE 40MG DR TABLET PO SCH (05:47)
[2021-06-06] MEDS: SUCRALFATE 1 G/10 ML UDC PO SCH ×2 (05:47→12:49)
[2021-06-06 07:57] LABS: BASOPHILS % 0.3 % (0.0-2.0); HEMATOCRIT. 35.8 % (36.0-48.0); HEMOGLOBIN. 12.3 g/dL (12.0-16.0); LYMPHOCYTES % 35.7 % (20.0-50.0); MEAN CORPUSCULAR HEMOGLOBIN 29.8 pg (28.0-32.0); MEAN CORPUSCULAR VOLUME 86.7 fL (81.0-99.0); MEAN PLATELET VOLUME 7.7 fl (7.4-10.4); MONOCYTES % 8.1 % (2.0-8.0); NEUTROPHILS % 54.9 % (40.0-76.0); PLATELET 277 x1000/uL (130-400); RED BLOOD CELL COUNT 4.13 mill/uL (4.2-5.4); RED CELL DISTRIBUTION WIDTH 20.4 % (11.6-14.6)
[2021-06-06 08:00] VITALS: BP 112/77
[2021-06-06] MEDS ORDERED: POTASSIUM CHLORIDE 20MEQ TABLET SR PO SCH (08:45)
[2021-06-06] MEDS: DILTIAZEM HCL 180MG CAPSULE CD 24HR PO SCH (09:10)
[2021-06-06] MEDS: FUROSEMIDE 40MG TABLET PO SCH (09:10)
[2021-06-06] MEDS: METOPROLOL TARTRATE 25MG TABLET PO SCH (09:10)
[2021-06-06] MEDS ORDERED: MAGNESIUM 2 G PREMIX 50 ML IV SCH (10:00)
[2021-06-06] MEDS: INSULIN GLARGINE 100 UNITS/ML SUBCUT SCH (10:38)
[2021-06-06 12:00] VITALS: BP 107/61
[2021-06-06 13:02] VITALS: BP 107/61
== END 2021-06-06 14:15 | disposition home or self-care (01) | DRG 241 ==
LOC: ER 16:40 → 7EST 18:33 → ENRESERV 21:41 → ER 05-30 01:44
PROVIDERS: ADMIT Internal Medicine; ATTEND Internal Medicine
PROC: 4B02XSZ Measurement of Cardiac Pacemaker, External Approach (ICD-10-PCS; principal; 2021-06-01)
PROC: 0DB78ZX Excision of Stomach, Pylorus, Via Natural or Artificial Opening Endoscopic, Diagnostic (ICD-10-PCS; 2021-06-02)
DX: K29.51 Unspecified chronic gastritis with bleeding (principal); N17.0 Acute kidney failure with tubular necrosis; I42.9 Cardiomyopathy, unspecified; D50.9 Iron deficiency anemia, unspecified; I50.9 Heart failure, unspecified; I13.0 Hypertensive heart and chronic kidney disease with heart failure and stage 1 through stage 4 chronic kidney disease, or unspecified chronic kidney disease; I48.20 Chronic atrial fibrillation, unspecified; E11.22 Type 2 diabetes mellitus with diabetic chronic kidney disease; E86.0 Dehydration; E03.9 Hypothyroidism, unspecified; N39.0 Urinary tract infection, site not specified; E11.43 Type 2 diabetes mellitus with diabetic autonomic (poly)neuropathy; K31.A0 Gastric intestinal metaplasia, unspecified; E78.5 Hyperlipidemia, unspecified; K21.9 Gastro-esophageal reflux disease without esophagitis; N18.9 Chronic kidney disease, unspecified; Z20.822 Contact with and (suspected) exposure to COVID-19; K76.0 Fatty (change of) liver, not elsewhere classified; I34.0 Nonrheumatic mitral (valve) insufficiency; E87.6 Hypokalemia; E83.42 Hypomagnesemia; Z95.0 Presence of cardiac pacemaker; Z79.01 Long term (current) use of anticoagulants; Z79.899 Other long term (current) drug therapy; Z79.4 Long term (current) use of insulin; Z82.49 Family history of ischemic heart disease and other diseases of the circulatory system
CPT/HCPCS: 36415; 74177; 76770; 80048; 80053; 80061; 81003; 82105; 82270; 82378; 82962; 83036; 83735; 84100; 85014; 85018; 85025; 86301; 87015; 87045; 87077; 87426; 87427; 87449; 87493; 88305; 88312; 88313; 89055; 93005; 99285; C1893; C9113; J0696; J1100; J1815; J2250; J2370; J2405; J2704; J2765; J3475; J3480; J3490; J7030; J7060; Q9967

== ENCOUNTER 2021-08-07 16:59 | Emergency (ER) | payer MEDICAID ==
[~2021-08-07] VITALS: Ht 152.4 cm; Wt 43.0 kg
[~2021-08-07 16:59] MED LIST changes: -FAMO-135 MT; +MAGN400T55 MT; -MAGN400T8 MT
[2021-08-07 17:17] VITALS: BP 113/80
== END 2021-08-08 00:34 | disposition left against medical advice (07) ==
LOC: ER 16:59
DX: Z53.21 Procedure and treatment not carried out due to patient leaving prior to being seen by health care provider (principal)
CPT/HCPCS: 93005